=== PATIENT | male | born 1960 | race Caucasian/White ===

== ENCOUNTER → 2019-04-08 | Outpatient (CLI) | payer OTHER ==
--- NOTE | 2019-04-08 13:10 | Diagnostic Imaging Report ---
Left Elbow MRI without contrast. History: Elbow pain. Fall. Injury. Decreased range of motion. Comparison: None Technique: Coronal, sagittal, and axial PD FSE and PD FSE FS. Findings: Common extensor tendinosis with midsubstance degeneration. High-grade tear of the triceps tendon at the posterior proximal ulnar insertion site best seen on axial image 3 through 12. There is an adjacent 2 cm elliptical shaped fluid collection in the superficial soft tissues consistent with an evolving hematoma. There is adjacent soft tissue edema. The common flexor tendon origin is normal. The anterior and posterior bands of the MCL are normal. The lateral ulnar collateral ligament and radial collateral ligament proper are normal. No osteochondral lesions. Physiologic amount of fluid within the joint. Signal intensity within the ulnar nerve is normal. The biceps and brachialis tendon insertions are normal. The triceps tendon is normal. No fracture, osteonecrosis, or stress-related edema. Impression: High-grade tear of the triceps tendon at the posterior proximal ulnar insertion site with an adjacent 2 cm elliptical shaped fluid collection in the superficial soft tissues consistent with an evolving hematoma. There is adjacent soft tissue edema. Common extensor tendinosis with midsubstance degeneration. Signed by: Dr. Alex Kemp M.D. on 04/08/2019 1:06 PM
== END ==
LOC: MRI 10:49
PROVIDERS: ATTEND Specialist
DX: M25.522 Pain in left elbow (principal); S46.312A Strain of muscle, fascia and tendon of triceps, left arm, initial encounter; M77.8 Other enthesopathies, not elsewhere classified

== ENCOUNTER → 2019-06-08 | Day surgery (SDC) | payer OTHER ==
[2019-06-07 11:54] LABS: ANION GAP 13.2 mmol/L (8-16); BLOOD UREA NITROGEN 9 mg/dL (7-26); BUN/CREATININE RATIO 9 (6-25); CALCIUM 9.6 mg/dL (8.4-10.2); CARBON DIOXIDE 27 mmol/L (22-29); CHLORIDE 103 mmol/L (98-107); CREATININE, SERUM 0.98 mg/dL (0.72-1.25); EST GLOMERULAR FILTRATION RATE > 60 ML/MIN (60-); GLUCOSE 131 mg/dL (74-118); POTASSIUM 4.2 mmol/L (3.5-5.1); SODIUM 139 mmol/L (136-145)
[~2019-06-08] MED LIST: ACETAMINOPHEN 1000 MG/100 ML IV ONE; AMLODIPINE BESY10 MG PO; BACITRACIN 50,000 UNIT VIAL ONE; BUPIVACAINE HCL 0.5% INJ 30 ML VIAL INJ ONE; CEFAZOLIN SOD 1 GM/NS 50ML 100 ML IV ONE; COQ-10100 MG PO; CRESTOR10 MG PO; DEXAMETHASONE SOD PHOS INJ 4 MG/ML VIAL ONE; FENTANYL CITRATE/PF 100MCG/2 ML INJ ONE; FISH OIL 1,0001 EAC2 PO; GLYCOPYRROLATE INJ 0.2 MG/ML VIAL ONE; LIDOCAINE HCL 2% LOCAL INJ 5 ML SDV VIAL INJ ONE; METFORMIN HCL500 MG PO; MIDAZOLAM HCL 2 MG/2 ML VIAL ONE; NEOSTIGMINE 1 MG/ML 10ML VIAL ONE; ONDANSETRON HCL INJ 2MG/ML 2ML 2 MG/ML VIAL ONE; PROPOFOL IV EMULSION 10 MG/ML 20 ML VIAL ONE; ROCURONIUM BROMIDE 10 MG/ML 5ML VIAL ONE; SEVOFLURANE INHAL SOLN 250 ML PEN BTL ONE; VITAMIN B-121000 MCG PO; VITAMIN D33000 UNIT PO
--- OUTSIDE RECORDS SUMMARY | 2019-06-08 09:09 | XMS REPORT ---
Author Author [facility] Address Unknown Phone Unavailable Care Team Providers Care [employer] Name Role Phone BALJIT BEAUCHAMP Unavailable Unavailable Problems This patient has no known problems. Allergies, Adverse Reactions, Alerts This patient has no known allergies or adverse reactions. Medications This patient has no known medications. Results Test Description Test Time Test Comments Text Results Atomic Results Result Comments MRI ELBOW LEFT WO 2019-04-08 12:59:00 [place] [address] Patient Name: BROOKE CAMPBELL MR #: [id number] : 1960 Age/Sex: 58/M Req #: [id number] Adm Physician: Ordered by: BALJIT BEAUCHAMP MD Report #: [id number] Location: MRI Room/Bed: Procedure: [id number] MRI/MRI ELBOW LEFT WO Exam Date: Exam Time: REPORT STATUS: Signed Left Elbow MRI without contrast. History: Elbow pain. Fall. Injury. Decreased range of motion. Comparison: None Technique: Coronal, sagittal, and axial PD FSE and PD FSE FS. Findings: Common extensor tendinosis with midsubstance degeneration. High-grade tear of the triceps tendon at the posterior proximal ulnar insertion site best seen on axial image 3 through 12. There is an adjacent 2 cm elliptical shaped fluid collection in the superficial soft tissues consistent with an evolving hematoma. There is adjacent soft tissue edema. The common flexor tendon origin is normal. The anterior and posterior bands of the MCL are normal. The lateral ulnar collateral ligament and radial collateral ligament proper are normal. No osteochondral lesions. Physiologic amount of fluid within the joint. Signal intensity within the ulnar nerve is normal. The biceps and brachialis tendon insertions are normal. The triceps tendon is normal. No fracture, osteonecrosis, or stress-related edema. Impression: High-grade tear of the triceps tendon at the posterior proximal ulnar insertion site with an adjacent 2 cm elliptical shaped fluid collection in the superficial soft tissues consistent with an evolving hematoma. There is adjacent soft tissue edema. Common extensor tendinosis with midsubstance degeneration. Signed by: Dr. Alex Kemp M.D. on 04/08/2019 1:06 PM Dictated By: ALEX KEMP MD, MD [id number] Transcribed By: SHILOH on 04/08/19 1308 COPY TO: BALJIT BEAUCHAMP MD
[2019-06-08 13:48] VITALS: BP 140/87
--- NOTE | 2019-06-20 13:25 | Operative Report ---
DATE OF PROCEDURE: 06/08/2019 SURGEON: Ambrocio Elkins MD PREOPERATIVE DIAGNOSIS: Left subacute triceps avulsion. POSTOPERATIVE DIAGNOSIS: Left subacute triceps avulsion. OPERATION AND PROCEDURE PERFORMED: The patient underwent a left triceps repair. CARD SORTER: CAESAR Krishnamurthy. ANESTHESIA: General endotracheal intubation anesthesia. IV FLUIDS: Per the anesthesia record. BRIEF DESCRIPTION OF THE PATIENT'S OPERATIVE PROCEDURE: Mr. Blackwood was taken to the operating room and placed in the supine position on the operating table. Following induction of general anesthesia as well as endotracheal intubation, the patient was turned into a lateral position with the left side up. An axillary roll was placed in the right chest wall. He was held in place with a romano bag ledezma. The patient's left upper extremity was examined under anesthesia. He was found to have no gross abnormalities. The upper extremity was prepped and draped in standard surgical fashion. The case was begun by creating a curvilinear incision in the distal upper arm extending below the olecranon process. This incision was carried through the skin only. Blunt dissection was used to deepen the incision to expose the distal aspect of the triceps. A palpable defect was noted in the central aspect of the triceps insertion. There was scar tissue in this region. The scar tissue was debrided exposing an avulsed triceps insertion. There was a small portion of the olecranon avulsed with the triceps tendon. This piece of olecranon was excised. The edges of the tendon were debrided to healthy tissue. The insertion site for the triceps was debrided scar tissue and then a bur was used to create a bleeding bony bed. FiberWire suture was then woven through the triceps tendon and pulled through drill holes in the olecranon process, advancing the triceps into its normal insertion site. This resulted in a complete reapproximation of the triceps into its normal insertion site. This wound was copiously irrigated. The elbow was placed through range of motion and found to be stable. The wound was closed in a multilayer fashion. Sterile dressings were applied as well as a well-padded posterior splint. The patient was then awakened and taken to the postanesthesia care unit in stable condition. Justyna Valderrama was the heel sprayer first for this case and was necessary for the prepping and draping the patient as well as position of the patient and the retraction of soft tissues and the closure of wounds to allow this case to be successful. MD CHECO Willis/KORTNEY /[id number]
== END | disposition home or self-care (01) ==
LOC: OR 09:03
PROVIDERS: ATTEND Specialist
DX: S46.392A Other injury of muscle, fascia and tendon of triceps, left arm, initial encounter (principal); E11.9 Type 2 diabetes mellitus without complications; I10 Essential (primary) hypertension; W01.198A Fall on same level from slipping, tripping and stumbling with subsequent striking against other object, initial encounter; Z01.810 Encounter for preprocedural cardiovascular examination; Z01.812 Encounter for preprocedural laboratory examination; Z79.84 Long term (current) use of oral hypoglycemic drugs
CPT/HCPCS: 24341; 36415 ×2; 80048; 82948; 93005; J0131; J0690; J1100; J2001; J2250; J2405; J2704; J2710; J3010